=== PATIENT | female | born 1950 | race African-American/Black ===

== ENCOUNTER 2021-02-15 20:12 | Inpatient (IN) | payer OTHER, MEDICAID ==
[2021-02-15 21:47] LABS: #Eosinphils 0.1 10x3/uL (0.0-0.5); #Monocytes 0.6 10x3/uL (0.0-1.1); #Neutrophils 7.6 10x3/uL (1.5-8.4); %Basophils 0.4 % (0.0-2.0); %Eosinophils 0.6 % (0.0-6.0); %Lymphocytes 7.8 % (18.0-47.0); %Monocytes 6.5 % (0.0-10.0); %Neutrophils 84.1 % (40.0-75.0); Hemoglobin 11.7 g/dL (12.0-15.5); Mean Corpuscular HGB CONC 32.9 g/dL (32.0-36.0); Mean Corpuscular Hemoglobin 30.2 pg (27.0-33.0); Mean Corpuscular Volume 91.8 fl (81.6-98.3); Mean Platelet Volume 8.8 fl (7.4-10.4); Platelet Count 319 10x3/uL (150-450); RBC Distribution Width 14.4 % (11.5-14.5); Red Blood Cell (RBC) Count 3.88 10x6/uL (3.90-5.03); White Blood Cell (WBC) Count 9.1 10x3/uL (3.5-10.5)
[2021-02-15 22:02] LABS: ALT (SGPT) 21 U/L (8-55); AST (SGOT) 27 U/L (5-34); Albumin 4.4 g/dL (3.4-4.8); Alkaline Phosphatase 81 U/L (40-110); Anion Gap 17 mmol/L (10-20); BUN (Urea Nitrogen) 15 mg/dL (9.8-20.1); Bilirubin, Total 0.4 mg/dL (0.2-1.2); CK (CPK) 283 U/L (29-168); Calc. Creatinine Clearance 0 mL/min (70-130); Calcium 9.8 mg/dL (7.8-10.44); Carbon Dioxide 23 mmol/L (23-31); Chloride 92 mmol/L (98-107); Globulin 5.3 g/dL (2.4-3.5); Glucose 111 mg/dL (83-110); Lipase 14 U/L (8-78); Potassium 4.6 mmol/L (3.5-5.1); Protein, Total 9.7 g/dL (5.8-8.1); Sodium 127 mmol/L (136-145)
[2021-02-15] MEDS ORDERED: Nitroglycerin 2% Ointment 1 INCH/1 GM Packet ONE (22:44)
[2021-02-16] MEDS ORDERED: Ondansetron ODT 4 MG TAB PO PRN (05:07)
[2021-02-16] MEDS ORDERED: Ondansetron PF 4 MG/2 ML Vial IVP PRN (05:07)
[2021-02-16] MEDS ORDERED: hydrALAZINE 20 MG/ML VIAL SLOW IVP PRN (05:07)
[2021-02-16] MEDS ORDERED: HYDROcodone/Acetaminophen 5/325 mg Tablet PO PRN (05:07)
[2021-02-16 06:18] LABS: #Eosinphils 0.1 10x3/uL (0.0-0.5); #Neutrophils 6.4 10x3/uL (1.5-8.4); %Basophils 0.2 % (0.0-2.0); %Eosinophils 1.2 % (0.0-6.0); %Lymphocytes 13.8 % (18.0-47.0); %Monocytes 11.4 % (0.0-10.0); %Neutrophils 73.1 % (40.0-75.0); Hemoglobin 10.3 g/dL (12.0-15.5); Mean Corpuscular HGB CONC 32.4 g/dL (32.0-36.0); Mean Corpuscular Hemoglobin 30.5 pg (27.0-33.0); Mean Corpuscular Volume 94.1 fl (81.6-98.3); Mean Platelet Volume 9.2 fl (7.4-10.4); Platelet Count 309 10x3/uL (150-450); RBC Distribution Width 14.4 % (11.5-14.5); Red Blood Cell (RBC) Count 3.38 10x6/uL (3.90-5.03); White Blood Cell (WBC) Count 8.8 10x3/uL (3.5-10.5)
[2021-02-16 06:28] LABS: ALT (SGPT) 19 U/L (8-55); AST (SGOT) 21 U/L (5-34); Albumin 3.8 g/dL (3.4-4.8); Alkaline Phosphatase 71 U/L (40-110); Anion Gap 12 mmol/L (10-20); BUN (Urea Nitrogen) 15 mg/dL (9.8-20.1); Bilirubin, Total 0.5 mg/dL (0.2-1.2); Calc. Creatinine Clearance 0 mL/min (70-130); Calcium 9.6 mg/dL (7.8-10.44); Carbon Dioxide 29 mmol/L (23-31); Chloride 93 mmol/L (98-107); Globulin 4.6 g/dL (2.4-3.5); Glucose 95 mg/dL (83-110); Magnesium 2.1 mg/dL (1.6-2.6); Potassium 4.8 mmol/L (3.5-5.1); Protein, Total 8.4 g/dL (5.8-8.1); Sodium 129 mmol/L (136-145)
[2021-02-16] MEDS ORDERED: Furosemide 40 MG/4 ML VIAL SLOW IVP SCH (07:00)
[2021-02-16] MEDS ORDERED: Aspirin Chewable 81 MG TAB ONE (08:57)
[2021-02-16] MEDS ORDERED: Furosemide 40 MG/4 ML VIAL ONE ×2 (08:57→17:38)
[2021-02-16] MEDS ORDERED: Enoxaparin Sodium 40 MG/0.4 ML SYRINGE ONE (08:57)
[2021-02-16 09:07] LABS: SARS-CoV-2 NAA Rapid Test Not Detected (NotDetected)
[2021-02-16 09:11] LABS: Hemoglobin A1c 5.9 % (4.0-6.0)
[2021-02-16] MEDS: Enoxaparin Sodium 40 MG/0.4 ML SYRINGE SC SCH (09:15)
[2021-02-16] MEDS: Lisinopril 2.5 MG TAB PO SCH (09:34)
[2021-02-16] MEDS: Aspirin 81 mg Enteric Coated Tablet PO SCH (09:35)
[2021-02-16] MEDS ORDERED: Carvedilol 3.125 MG TAB ONE (09:53)
[2021-02-16] MEDS: Carvedilol 3.125 MG TAB PO SCH ×2 (10:04→22:00)
[2021-02-16] MEDS: Furosemide 40 MG/4 ML VIAL SLOW IVP SCH (17:43)
[2021-02-17 04:24] VITALS: BMI 79.9
[2021-02-17] MEDS: Furosemide 40 MG/4 ML VIAL SLOW IVP SCH ×2 (06:35→13:43)
[2021-02-17] MEDS ORDERED: Furosemide 20 MG/2 ML VIAL ONE (06:37)
[2021-02-17 07:01] LABS: #Eosinphils 0.2 10x3/uL (0.0-0.5); #Neutrophils 6.4 10x3/uL (1.5-8.4); %Basophils 0.4 % (0.0-2.0); %Eosinophils 2.1 % (0.0-6.0); %Lymphocytes 13.8 % (18.0-47.0); %Monocytes 11.7 % (0.0-10.0); %Neutrophils 71.4 % (40.0-75.0); Hemoglobin 9.9 g/dL (12.0-15.5); Mean Corpuscular HGB CONC 31.7 g/dL (32.0-36.0); Mean Corpuscular Hemoglobin 30.4 pg (27.0-33.0); Mean Corpuscular Volume 95.7 fl (81.6-98.3); Mean Platelet Volume 9.2 fl (7.4-10.4); Platelet Count 278 10x3/uL (150-450); RBC Distribution Width 14.8 % (11.5-14.5); Red Blood Cell (RBC) Count 3.26 10x6/uL (3.90-5.03); White Blood Cell (WBC) Count 8.9 10x3/uL (3.5-10.5)
[2021-02-17 07:03] LABS: Anion Gap 14 mmol/L (10-20); BUN (Urea Nitrogen) 18 mg/dL (9.8-20.1); Calc. Creatinine Clearance 200 mL/min (70-130); Calcium 8.9 mg/dL (7.8-10.44); Carbon Dioxide 27 mmol/L (23-31); Chloride 95 mmol/L (98-107); Glucose 101 mg/dL (83-110); Potassium 4.5 mmol/L (3.5-5.1); Sodium 131 mmol/L (136-145)
[2021-02-17] MEDS: Carvedilol 3.125 MG TAB PO SCH ×2 (08:30→20:17)
[2021-02-17] MEDS: Lisinopril 2.5 MG TAB PO SCH (09:54)
[2021-02-17] MEDS: Enoxaparin Sodium 40 MG/0.4 ML SYRINGE SC SCH (09:54)
[2021-02-17] MEDS: Aspirin 81 mg Enteric Coated Tablet PO SCH (09:54)
[2021-02-17] MEDS: Potassium Chloride 20 MEQ TAB PO SCH ×2 (13:43→13:59)
[2021-02-17] MEDS: Acetaminophen 325 MG TAB PO PRN (20:17)
[2021-02-18] MEDS: Furosemide 40 MG/4 ML VIAL SLOW IVP SCH ×2 (06:29→14:53)
[2021-02-18 06:44] LABS: #Eosinphils 0.3 10x3/uL (0.0-0.5); #Monocytes 1.2 10x3/uL (0.0-1.1); #Neutrophils 6.1 10x3/uL (1.5-8.4); %Basophils 0.4 % (0.0-2.0); %Eosinophils 3.1 % (0.0-6.0); %Lymphocytes 14.8 % (18.0-47.0); %Monocytes 13.2 % (0.0-10.0); %Neutrophils 68.2 % (40.0-75.0); Hemoglobin 9.6 g/dL (12.0-15.5); Mean Corpuscular HGB CONC 30.9 g/dL (32.0-36.0); Mean Corpuscular Hemoglobin 29.6 pg (27.0-33.0); Mean Platelet Volume 9.4 fl (7.4-10.4); Platelet Count 320 10x3/uL (150-450); RBC Distribution Width 14.6 % (11.5-14.5); Red Blood Cell (RBC) Count 3.24 10x6/uL (3.90-5.03); White Blood Cell (WBC) Count 8.9 10x3/uL (3.5-10.5)
[2021-02-18 07:07] LABS: Anion Gap 10 mmol/L (10-20); BUN (Urea Nitrogen) 19 mg/dL (9.8-20.1); Calc. Creatinine Clearance 227 mL/min (70-130); Carbon Dioxide 33 mmol/L (23-31); Chloride 95 mmol/L (98-107); Potassium 4.4 mmol/L (3.5-5.1); Sodium 134 mmol/L (136-145)
[2021-02-18] MEDS: Acetaminophen 325 MG TAB PO PRN ×2 (08:43→22:28)
[2021-02-18] MEDS: Potassium Chloride 20 MEQ TAB PO SCH ×2 (08:44→08:58)
[2021-02-18] MEDS: Aspirin 81 mg Enteric Coated Tablet PO SCH (08:45)
[2021-02-18] MEDS: Carvedilol 3.125 MG TAB PO SCH ×2 (08:46→22:29)
[2021-02-18] MEDS: Lisinopril 2.5 MG TAB PO SCH ×2 (08:46→19:23)
[2021-02-18] MEDS: Enoxaparin Sodium 40 MG/0.4 ML SYRINGE SC SCH (08:46)
[2021-02-18 09:22] LABS: Glucose 108 mg/dL (83-110)
[2021-02-19 04:39] LABS: #Eosinphils 0.3 10x3/uL (0.0-0.5); #Neutrophils 6.4 10x3/uL (1.5-8.4); %Basophils 0.4 % (0.0-2.0); %Eosinophils 3.4 % (0.0-6.0); %Lymphocytes 14.2 % (18.0-47.0); %Monocytes 10.6 % (0.0-10.0); %Neutrophils 71.1 % (40.0-75.0); Hemoglobin 9.8 g/dL (12.0-15.5); Mean Corpuscular HGB CONC 31.4 g/dL (32.0-36.0); Mean Corpuscular Hemoglobin 30.2 pg (27.0-33.0); Mean Corpuscular Volume 96.3 fl (81.6-98.3); Mean Platelet Volume 9.2 fl (7.4-10.4); Platelet Count 300 10x3/uL (150-450); RBC Distribution Width 14.6 % (11.5-14.5); Red Blood Cell (RBC) Count 3.24 10x6/uL (3.90-5.03); White Blood Cell (WBC) Count 9.1 10x3/uL (3.5-10.5)
[2021-02-19 05:05] LABS: ALT (SGPT) 14 U/L (8-55); AST (SGOT) 15 U/L (5-34); Albumin 3.3 g/dL (3.4-4.8); Alkaline Phosphatase 54 U/L (40-110); Anion Gap 14 mmol/L (10-20); BUN (Urea Nitrogen) 19 mg/dL (9.8-20.1); Bilirubin, Total 0.2 mg/dL (0.2-1.2); Calc. Creatinine Clearance 203 mL/min (70-130); Calcium 9.1 mg/dL (7.8-10.44); Carbon Dioxide 31 mmol/L (23-31); Chloride 94 mmol/L (98-107); Globulin 4.2 g/dL (2.4-3.5); Glucose 114 mg/dL (83-110); Potassium 4.2 mmol/L (3.5-5.1); Protein, Total 7.5 g/dL (5.8-8.1); Sodium 135 mmol/L (136-145)
[2021-02-19] MEDS: Furosemide 40 MG/4 ML VIAL SLOW IVP SCH ×2 (06:50→15:17)
[2021-02-19] MEDS: Carvedilol 3.125 MG TAB PO SCH ×2 (10:30→22:11)
[2021-02-19] MEDS: Aspirin 81 mg Enteric Coated Tablet PO SCH (10:30)
[2021-02-19] MEDS: Acetaminophen 325 MG TAB PO PRN ×2 (10:30→15:18)
[2021-02-19] MEDS: Potassium Chloride 20 MEQ TAB PO SCH (10:31)
[2021-02-19] MEDS: Lisinopril 2.5 MG TAB PO SCH (10:31)
[2021-02-19] MEDS: Enoxaparin Sodium 40 MG/0.4 ML SYRINGE SC SCH (15:17)
[2021-02-20] MEDS: Acetaminophen 325 MG TAB PO PRN ×3 (03:07→15:31)
[2021-02-20 05:12] LABS: Anion Gap 12 mmol/L (10-20); BUN (Urea Nitrogen) 17 mg/dL (9.8-20.1); Calc. Creatinine Clearance 224 mL/min (70-130); Carbon Dioxide 33 mmol/L (23-31); Chloride 93 mmol/L (98-107); Glucose 129 mg/dL (83-110); Potassium 3.9 mmol/L (3.5-5.1); Sodium 134 mmol/L (136-145)
[2021-02-20 05:13] LABS: #Basophils 0.1 10x3/uL (0.0-0.2); #Eosinphils 0.4 10x3/uL (0.0-0.5); #Monocytes 0.7 10x3/uL (0.0-1.1); #Neutrophils 5.9 10x3/uL (1.5-8.4); %Basophils 0.6 % (0.0-2.0); %Eosinophils 4.3 % (0.0-6.0); %Neutrophils 71.9 % (40.0-75.0); Hemoglobin 10.4 g/dL (12.0-15.5); Mean Corpuscular HGB CONC 31.3 g/dL (32.0-36.0); Mean Corpuscular Hemoglobin 30.1 pg (27.0-33.0); Mean Platelet Volume 9.4 fl (7.4-10.4); Platelet Count 326 10x3/uL (150-450); RBC Distribution Width 14.6 % (11.5-14.5); Red Blood Cell (RBC) Count 3.46 10x6/uL (3.90-5.03); White Blood Cell (WBC) Count 8.2 10x3/uL (3.5-10.5)
[2021-02-20] MEDS: Furosemide 40 MG/4 ML VIAL SLOW IVP SCH ×2 (06:17→15:29)
[2021-02-20] MEDS: Carvedilol 3.125 MG TAB PO SCH ×2 (09:08→21:27)
[2021-02-20] MEDS: Potassium Chloride 20 MEQ TAB PO SCH (09:08)
[2021-02-20] MEDS: Lisinopril 2.5 MG TAB PO SCH (09:08)
[2021-02-20] MEDS: Aspirin 81 mg Enteric Coated Tablet PO SCH (09:08)
[2021-02-20] MEDS: Enoxaparin Sodium 40 MG/0.4 ML SYRINGE SC SCH (09:09)
[2021-02-20] MEDS ORDERED: Bisacodyl 10 MG SUPP PR SCH (11:30)
[2021-02-21 05:10] LABS: #Eosinphils 0.4 10x3/uL (0.0-0.5); #Monocytes 0.7 10x3/uL (0.0-1.1); #Neutrophils 5.2 10x3/uL (1.5-8.4); %Basophils 0.5 % (0.0-2.0); %Eosinophils 5.4 % (0.0-6.0); %Lymphocytes 15.9 % (18.0-47.0); %Monocytes 9.4 % (0.0-10.0); %Neutrophils 68.4 % (40.0-75.0); Mean Corpuscular HGB CONC 31.3 g/dL (32.0-36.0); Mean Corpuscular Hemoglobin 29.7 pg (27.0-33.0); Mean Corpuscular Volume 94.9 fl (81.6-98.3); Mean Platelet Volume 9.1 fl (7.4-10.4); Platelet Count 319 10x3/uL (150-450); RBC Distribution Width 14.5 % (11.5-14.5); White Blood Cell (WBC) Count 7.6 10x3/uL (3.5-10.5)
[2021-02-21 05:47] LABS: Anion Gap 13 mmol/L (10-20); BUN (Urea Nitrogen) 17 mg/dL (9.8-20.1); Calc. Creatinine Clearance 222 mL/min (70-130); Calcium 9.4 mg/dL (7.8-10.44); Carbon Dioxide 31 mmol/L (23-31); Chloride 94 mmol/L (98-107); Glucose 105 mg/dL (83-110); Potassium 4.1 mmol/L (3.5-5.1); Sodium 134 mmol/L (136-145)
[2021-02-21] MEDS: Furosemide 40 MG/4 ML VIAL SLOW IVP SCH (06:02)
[2021-02-21] MEDS: Carvedilol 3.125 MG TAB PO SCH ×2 (09:25→21:44)
[2021-02-21] MEDS: Aspirin 81 mg Enteric Coated Tablet PO SCH (09:25)
[2021-02-21] MEDS: Lisinopril 2.5 MG TAB PO SCH ×2 (09:25→09:37)
[2021-02-21] MEDS: Potassium Chloride 20 MEQ TAB PO SCH ×2 (09:25→09:36)
[2021-02-21] MEDS: Enoxaparin Sodium 40 MG/0.4 ML SYRINGE SC SCH (09:25)
[2021-02-21] MEDS: Acetaminophen 325 MG TAB PO PRN (21:44)
[2021-02-22] MEDS: Furosemide 40 MG TAB PO SCH (06:48)
[2021-02-22] MEDS: Aspirin 81 mg Enteric Coated Tablet PO SCH (09:14)
[2021-02-22] MEDS: Carvedilol 3.125 MG TAB PO SCH ×2 (09:14→21:26)
[2021-02-22] MEDS: Potassium Chloride 20 MEQ TAB PO SCH (09:14)
[2021-02-22] MEDS: Enoxaparin Sodium 40 MG/0.4 ML SYRINGE SC SCH (09:14)
[2021-02-22] MEDS: Acetaminophen 325 MG TAB PO PRN (09:17)
[2021-02-23] MEDS: Acetaminophen 325 MG TAB PO PRN ×3 (00:01→15:43)
[2021-02-23] MEDS: Carvedilol 3.125 MG TAB PO SCH ×2 (09:21→21:23)
[2021-02-23] MEDS: Enoxaparin Sodium 40 MG/0.4 ML SYRINGE SC SCH (09:21)
[2021-02-23] MEDS: Potassium Chloride 20 MEQ TAB PO SCH (09:21)
[2021-02-23] MEDS: Furosemide 40 MG TAB PO SCH (09:21)
[2021-02-23] MEDS: Aspirin 81 mg Enteric Coated Tablet PO SCH (09:21)
[2021-02-24 05:23] LABS: Anion Gap 14 mmol/L (10-20); BUN (Urea Nitrogen) 16 mg/dL (9.8-20.1); Calc. Creatinine Clearance 219 mL/min (70-130); Calcium 9.6 mg/dL (7.8-10.44); Carbon Dioxide 29 mmol/L (23-31); Chloride 98 mmol/L (98-107); Glucose 104 mg/dL (83-110); Potassium 4.4 mmol/L (3.5-5.1); Sodium 137 mmol/L (136-145)
[2021-02-24 05:46] LABS: #Eosinphils 0.3 10x3/uL (0.0-0.5); #Monocytes 0.7 10x3/uL (0.0-1.1); #Neutrophils 5.8 10x3/uL (1.5-8.4); %Basophils 0.5 % (0.0-2.0); %Eosinophils 3.8 % (0.0-6.0); %Lymphocytes 18.2 % (18.0-47.0); %Monocytes 8.2 % (0.0-10.0); %Neutrophils 68.7 % (40.0-75.0); Hemoglobin 11.7 g/dL (12.0-15.5); Mean Corpuscular HGB CONC 30.9 g/dL (32.0-36.0); Mean Corpuscular Hemoglobin 29.7 pg (27.0-33.0); Mean Corpuscular Volume 96.2 fl (81.6-98.3); Mean Platelet Volume 9.3 fl (7.4-10.4); Platelet Count 385 10x3/uL (150-450); RBC Distribution Width 14.6 % (11.5-14.5); Red Blood Cell (RBC) Count 3.94 10x6/uL (3.90-5.03); White Blood Cell (WBC) Count 8.5 10x3/uL (3.5-10.5)
[2021-02-24] MEDS: Acetaminophen 325 MG TAB PO PRN (10:16)
[2021-02-24] MEDS: Aspirin 81 mg Enteric Coated Tablet PO SCH (10:17)
[2021-02-24] MEDS: Potassium Chloride 20 MEQ TAB PO SCH (10:17)
[2021-02-24] MEDS: Furosemide 40 MG TAB PO SCH (10:17)
[2021-02-24] MEDS: Enoxaparin Sodium 40 MG/0.4 ML SYRINGE SC SCH (10:17)
[2021-02-24] MEDS: Carvedilol 3.125 MG TAB PO SCH ×2 (10:17→20:35)
[2021-02-24] MEDS ORDERED: Bisacodyl 10 MG SUPP PR PRN (15:25)
[2021-02-24 19:54] LABS: SARS-CoV-2 PCR by NAA Not Detected (NotDetected)
[2021-02-25] MEDS ORDERED: Enoxaparin Sodium 40 MG/0.4 ML SYRINGE ONE (09:20)
[2021-02-25] MEDS: Potassium Chloride 20 MEQ TAB PO SCH (09:26)
[2021-02-25] MEDS: Furosemide 40 MG TAB PO SCH (09:26)
[2021-02-25] MEDS: Aspirin 81 mg Enteric Coated Tablet PO SCH (09:26)
[2021-02-25] MEDS: Enoxaparin Sodium 40 MG/0.4 ML SYRINGE SC SCH (09:26)
[2021-02-25] MEDS: Carvedilol 3.125 MG TAB PO SCH ×2 (09:26→21:00)
[2021-02-25] MEDS: Acetaminophen 325 MG TAB PO PRN ×2 (09:38→21:03)
[2021-02-26] MEDS: Potassium Chloride 20 MEQ TAB PO SCH (09:45)
[2021-02-26] MEDS: Aspirin 81 mg Enteric Coated Tablet PO SCH (09:45)
[2021-02-26] MEDS: Carvedilol 3.125 MG TAB PO SCH ×2 (09:45→21:50)
[2021-02-26] MEDS: Furosemide 40 MG TAB PO SCH (09:45)
[2021-02-26] MEDS: Enoxaparin Sodium 40 MG/0.4 ML SYRINGE SC SCH (09:46)
[2021-02-26] MEDS: Acetaminophen 325 MG TAB PO PRN (10:05)
[2021-02-27] MEDS: Acetaminophen 325 MG TAB PO PRN ×2 (00:41→11:08)
[2021-02-27] MEDS: Furosemide 40 MG TAB PO SCH (07:48)
[2021-02-27] MEDS: Carvedilol 3.125 MG TAB PO SCH (11:09)
[2021-02-27] MEDS: Potassium Chloride 20 MEQ TAB PO SCH (11:09)
[2021-02-27] MEDS: Enoxaparin Sodium 40 MG/0.4 ML SYRINGE SC SCH (11:09)
[2021-02-27] MEDS: Aspirin 81 mg Enteric Coated Tablet PO SCH (11:09)
[2021-02-27 12:18] VITALS: TEMP 98.2
[2021-02-27 12:39] VITALS: BP 135/74
[2021-02-27] MEDS ORDERED: Sodium Chloride 0.65% Nasal 44 ML BOT EA NARE PRN (12:57)
[2021-02-27] MEDS ORDERED: Zolpidem Tartrate 5 MG TAB PO PRN (12:57)
[2021-02-27] MEDS ORDERED: Senokot S 8.6-50 MG TAB PO PRN (12:57)
[2021-02-27] MEDS ORDERED: Cepastat Lozenges 1 LOZ PO PRN (12:57)
[2021-02-27] MEDS ORDERED: Loratadine 10 MG TAB PO PRN (12:57)
[2021-02-27] MEDS ORDERED: Loperamide HCl 2 MG CAP PO PRN (12:57)
[2021-02-27] MEDS ORDERED: Calcium Carbonate 500 MG ChewTAB PO PRN (12:57)
[2021-02-27] MEDS ORDERED: Hydrocerin (Eucerin) Cream 120 gm Jar TOP PRN (12:57)
[2021-02-27] MEDS ORDERED: GUAIFENESIN SF SOLN 200 MG/10 ML UDCUP PO PRN (12:57)
[2021-02-27] MEDS ORDERED: Artificial Tear Sol 15 ML BOT EA EYE PRN (12:57)
[2021-02-27] MEDS ORDERED: Benzonatate 100 MG CAP PO PRN (12:57)
== END 2021-02-27 17:00 | DRG 291 ==
LOC: CSHERS 20:12 → CSHERHOLD 02-16 06:15 → OBSVTOIN 02-16 06:16 → CSHTELE 02-16 19:08
PROVIDERS: ADMIT Internal Medicine; ATTEND Internal Medicine
DX: I11.0 Hypertensive heart disease with heart failure (principal); J96.01 Acute respiratory failure with hypoxia; E87.1 Hypo-osmolality and hyponatremia; Z68.45 Body mass index [BMI] 70 or greater, adult; K21.9 Gastro-esophageal reflux disease without esophagitis; E66.01 Morbid (severe) obesity due to excess calories; G62.9 Polyneuropathy, unspecified; K59.00 Constipation, unspecified; M19.90 Unspecified osteoarthritis, unspecified site; I50.33 Acute on chronic diastolic (congestive) heart failure; Z20.822 Contact with and (suspected) exposure to COVID-19
CPT/HCPCS: 36415; 71045; 80048; 80053; 82550; 83036; 83690; 83735; 83880; 84443; 84484; 85025; 93005; 93306; 96374; J1650; J1940; U0002; U0003; U0005